=== PATIENT | male | born 1950 | race African-American/Black ===

== ENCOUNTER 2021-07-18 15:43 | Inpatient (IN) | payer MEDICARE ==
[~2021-07-18] VITALS: Ht 172.7 cm; Wt 161.2 kg
[2021-07-18] MEDS ORDERED: VANCOMYCIN 1 G PREMIX 200 ML IV ONE (17:15)
[2021-07-18] MEDS ORDERED: LEVOFLOXACIN 750MG PREMIX 150 ML IV ONE (17:15)
[2021-07-18] MEDS ORDERED: FUROSEMIDE 40MG/4ML VIAL IVP ONE (17:15)
[2021-07-18 18:11] LABS: HEMATOCRIT. 44.7 % (42.0-52.0); HEMOGLOBIN. 13.6 g/dL (14.0-18.0); MEAN CORPUSCULAR HEMOGLOBIN 24.5 pg (28.0-32.0); MEAN CORPUSCULAR VOLUME 80.7 fL (80.0-94.0); MEAN PLATELET VOLUME 8.1 fl (7.4-10.4); PLATELET 272 x1000/uL (130-400); RED BLOOD CELL COUNT 5.55 mill/uL (4.7-6.1); RED CELL DISTRIBUTION WIDTH 18.4 % (11.6-14.6)
[2021-07-18 19:03] LABS: CHLORIDE 100 mEq/L (98-107)
[2021-07-18] MEDS ORDERED: NITROGLYCERIN 0.4MG TABLET SL SL PRN (20:45)
[2021-07-18] MEDS ORDERED: DOCUSATE SODIUM 100MG CAPSULE PO PRN (20:45)
[2021-07-18] MEDS ORDERED: KETOROLAC 30MG/ML VIAL IV PRN (20:45)
[2021-07-18] MEDS ORDERED: PIPERACILLIN/TAZ 3.375G PREMIX 50 ML IV NR (20:45)
[2021-07-18] MEDS ORDERED: IPRATROPIUM/ALBUTEROL 0.5-3(2.5)MG/3ML NEB NEB PRN (20:45)
[2021-07-18] MEDS ORDERED: GUAIFENESIN 200MG/10ML SUGAR FREE UDC PO PRN (20:45)
[2021-07-18] MEDS ORDERED: ONDANSETRON HCL 4MG/2ML INJ IV PRN (20:45)
[2021-07-18] MEDS ORDERED: NA PHOS,M-B/NA PHOS,DI-BA ENEMA 118ML PR PRN (20:45)
[2021-07-18] MEDS ORDERED: TRAMADOL 50MG TABLET PO PRN (20:45)
[2021-07-18] MEDS: ENOXAPARIN 40MG/0.4ML SYR SUBCUT SCH (21:00)
[2021-07-18] MEDS ORDERED: NALOXONE HCL 0.4MG/ML VIAL IV PRN (21:00)
[2021-07-18] MEDS ORDERED: ZOLPIDEM TARTRATE 5MG TABLET PO PRN (21:00)
[2021-07-18] MEDS: ASCORBIC ACID 500 MG TABLET PO SCH (21:00)
[2021-07-18] MEDS: FAMOTIDINE 20MG TABLET PO SCH (21:00)
[2021-07-18 21:08] LABS: PLATELET ESTIMATE NORMAL
[2021-07-18 21:27] LABS: ETHANOL BLOOD < 10 mg/dL
[2021-07-18 21:29] LABS: TOTAL IRON BINDING CAPACITY 378 ug/dL (250-450)
[2021-07-18] MEDS ORDERED: VANCOMYCIN 1 G PREMIX 200 ML IV SCH (22:00)
[2021-07-19] VITALS (34 sets, daily range): BP systolic 109–142; BP diastolic 42–96
[2021-07-19 04:48] LABS: HEMATOCRIT. 42.6 % (42.0-52.0); MEAN CORPUSCULAR HEMOGLOBIN 24.8 pg (28.0-32.0); MEAN CORPUSCULAR VOLUME 81.1 fL (80.0-94.0); MEAN PLATELET VOLUME 7.5 fl (7.4-10.4); PLATELET 280 x1000/uL (130-400); RED BLOOD CELL COUNT 5.24 mill/uL (4.7-6.1)
[2021-07-19 04:58] LABS: CHLORIDE 99 mEq/L (98-107)
[2021-07-19 05:05] LABS: PHOSPHORUS 5.5 mg/dL (2.5-4.9)
[2021-07-19] MEDS ORDERED: PIPERACILLIN/TAZOBACTAM 3.375G in DEXT 5% WATER 50ML IV SCH (06:00)
[2021-07-19 07:26] LABS: PLATELET ESTIMATE NORMAL
[2021-07-19 07:53] LABS: HEMATOCRIT. 42.1 % (42.0-52.0); HEMOGLOBIN. 12.7 g/dL (14.0-18.0); MEAN CORPUSCULAR HEMOGLOBIN 24.7 pg (28.0-32.0); MEAN CORPUSCULAR VOLUME 81.7 fL (80.0-94.0); MEAN PLATELET VOLUME 7.4 fl (7.4-10.4); PLATELET 278 x1000/uL (130-400); RED BLOOD CELL COUNT 5.15 mill/uL (4.7-6.1); RED CELL DISTRIBUTION WIDTH 17.8 % (11.6-14.6)
[2021-07-19 08:00] LABS: CHLORIDE 98 mEq/L (98-107)
[2021-07-19 08:14] LABS: BG BASE EXCESS -3.5 mmol/L (-2.0-2.0); BG CARBOXYHEMOGLOBIN 0.9 % (0.5-1.5); BG DEOXYHEMOGLOBIN 5.9 % (0.0-5.0); BG HCO3 ACT 20.7 mmol/L (22.0-26.0); BG METHEMOGLOBIN 0.3 % (0.0-1.5); BG OXYHEMOGLOBIN 92.9 % (94.0-97.0); BG PCO2 33.9 mmHg (35.0-45.0); BG PH 7.404 (7.350-7.450); BG PO2 75.8 mmHg (75.0-100.0); BG SAMPLE SITE RIGHT RADIAL; BG TOTAL HEMOGLOBIN 9.6 g/dL (12.0-18.0); BG VENT MODE ROOM AIR
[2021-07-19] MEDS ORDERED: VECURONIUM BROMIDE 10 MG/VIAL IV ONE ×2 (08:46→11:15)
[2021-07-19] MEDS ORDERED: ETOMIDATE 2MG/ML 10ML VIAL IV ONE ×2 (08:46→11:15)
[2021-07-19] MEDS: ASPIRIN 325MG EC TABLET PO SCH (09:00)
[2021-07-19] MEDS: ZINC SULFATE 220 MG ( 50 ) CAPSULE PO SCH (09:00)
[2021-07-19] MEDS: ASCORBIC ACID 500 MG TABLET PO SCH ×2 (09:00→21:02)
[2021-07-19] MEDS: FAMOTIDINE 20MG TABLET PO SCH ×2 (09:00→21:02)
[2021-07-19 09:43] LABS: PLATELET ESTIMATE NORMAL
[2021-07-19] MEDS: ENOXAPARIN 40MG/0.4ML SYR SUBCUT SCH ×2 (09:47→21:03)
[2021-07-19] MEDS ORDERED: NOREPINEPHRINE 8 MG in DEXT 5% WATER 242 ML IV STA (11:12)
[2021-07-19] MEDS ORDERED: FENTANYL CITRATE/PF 2,500 MCG in SODIUM CHLORIDE 0.9% 200 ML IV PRN ×3 (11:15→12:52)
[2021-07-19] MEDS ORDERED: MIDAZOLAM HCL 50 MG in DEXTROSE 5% WATER 40 ML IV ONE (11:15)
[2021-07-19] MEDS ORDERED: PROPOFOL 10MG/ML 100ML 100 ML IV PRN (11:15)
[2021-07-19] MEDS ORDERED: NOREPINEPHRINE 8MG/250ML PMX 250 ML IV SCH (11:15)
[2021-07-19] MEDS ORDERED: MIDAZOLAM HCL 100 MG in DEXT 5% WATER 80 ML IV ONE (11:15)
[2021-07-19 11:40] LABS: BG BASE EXCESS 8.1 mmol/L (-2.0-2.0); BG CARBOXYHEMOGLOBIN 1.9 % (0.5-1.5); BG DEOXYHEMOGLOBIN 0.4 % (0.0-5.0); BG HCO3 ACT 41.5 mmol/L (22.0-26.0); BG METHEMOGLOBIN 0.4 % (0.0-1.5); BG OXYGEN SATURATION 99.6 % (92.0-98.5); BG OXYHEMOGLOBIN 97.3 % (94.0-97.0); BG PH 7.153 (7.350-7.450); BG PO2 217.2 mmHg (75.0-100.0); BG SAMPLE SITE LEFT RADIAL; BG TOTAL HEMOGLOBIN 13.5 g/dL (12.0-18.0); BG TOTAL RESPIRATORY RATE 16 b/min; BG VENT MODE VENT - AC
[2021-07-19] MEDS ORDERED: LIDOCAINE HCL 1% 20ML VIAL (Pyxis) INJ ONE (11:42)
[2021-07-19] MEDS ORDERED: MIDAZOLAM HCL 100 MG in SODIUM CHLORIDE 0.9% 80 ML IV PRN (11:45)
[2021-07-19] MEDS: FENTANYL CITRATE/PF 2,500 MCG in SODIUM CHLORIDE 0.9% 200 ML IV PRN (13:00)
[2021-07-19] MEDS: VANCOMYCIN 1250MG in DEXTROSE 5% WATER 250ML IV SCH (13:27)
[2021-07-19 14:30] LABS: FOLIC ACID (FOLATE) SERUM 6.4 ng/mL (>5.38)
[2021-07-19 14:30] LABS: BG BASE EXCESS 4.9 mmol/L (-2.0-2.0); BG CARBOXYHEMOGLOBIN 1.3 % (0.5-1.5); BG FRACTION INSPIRED OXYGEN 100; BG HCO3 ACT 33.4 mmol/L (22.0-26.0); BG METHEMOGLOBIN 0.3 % (0.0-1.5); BG OXYGEN SATURATION 92.9 % (92.0-98.5); BG OXYHEMOGLOBIN 91.4 % (94.0-97.0); BG PCO2 70.1 mmHg (35.0-45.0); BG PH 7.296 (7.350-7.450); BG PO2 71.1 mmHg (75.0-100.0); BG SAMPLE SITE LEFT RADIAL; BG TOTAL HEMOGLOBIN 12.6 g/dL (12.0-18.0); BG VENT MODE VENT - AC
[2021-07-19] MEDS ORDERED: NOREPINEPHRINE 8 MG in DEXTROSE 5% WATER 250 ML IV PRN (15:30)
[2021-07-19] MEDS: PIPERACILLIN/TAZOBACTAM 3.375G in DEXT 5% WATER 50ML IV SCH ×2 (16:07→21:03)
[2021-07-19] MEDS ORDERED: IPRATROPIUM/ALBUTEROL 0.5-3(2.5)MG/3ML NEB HHN PRN (19:00)
[2021-07-19] MEDS: IPRATROPIUM/ALBUTEROL 0.5-3(2.5)MG/3ML NEB HHN SCH ×2 (19:45→23:56)
[2021-07-19] MEDS: LACTULOSE 20G/30ML UDC PO SCH (21:02)
[2021-07-19] MEDS: MIDAZOLAM HCL 100 MG in SODIUM CHLORIDE 0.9% 80 ML IV PRN (21:02)
[2021-07-20] VITALS (88 sets, daily range): BP systolic 87–133; BP diastolic 38–70
[2021-07-20] MEDS: FENTANYL CITRATE/PF 2,500 MCG in SODIUM CHLORIDE 0.9% 200 ML IV PRN (03:10)
[2021-07-20] MEDS: IPRATROPIUM/ALBUTEROL 0.5-3(2.5)MG/3ML NEB HHN SCH ×5 (03:57→20:48)
[2021-07-20 06:08] LABS: CHLORIDE 104 mEq/L (98-107)
[2021-07-20] MEDS: PIPERACILLIN/TAZOBACTAM 3.375G in DEXT 5% WATER 50ML IV SCH ×3 (06:27→21:25)
[2021-07-20] MEDS: LACTULOSE 20G/30ML UDC PO SCH ×3 (06:27→21:25)
[2021-07-20] MEDS: VANCOMYCIN 1250MG in DEXTROSE 5% WATER 250ML IV SCH (07:35)
[2021-07-20] MEDS: MIDAZOLAM HCL 100 MG in SODIUM CHLORIDE 0.9% 80 ML IV PRN (07:36)
[2021-07-20] MEDS ORDERED: FUROSEMIDE 40MG/4ML VIAL IVP SCH (07:45)
[2021-07-20 09:03] LABS: BG BASE EXCESS 14.2 mmol/L (-2.0-2.0); BG CARBOXYHEMOGLOBIN 0.3 % (0.5-1.5); BG DEOXYHEMOGLOBIN 0.1 % (0.0-5.0); BG FRACTION INSPIRED OXYGEN 100; BG HCO3 ACT 37.7 mmol/L (22.0-26.0); BG METHEMOGLOBIN 0.4 % (0.0-1.5); BG OXYGEN SATURATION 99.9 % (92.0-98.5); BG OXYHEMOGLOBIN 99.2 % (94.0-97.0); BG PCO2 42.6 mmHg (35.0-45.0); BG PH 7.565 (7.350-7.450); BG PO2 393.6 mmHg (75.0-100.0); BG SAMPLE SITE LEFT RADIAL; BG TOTAL HEMOGLOBIN 11.5 g/dL (12.0-18.0); BG TOTAL RESPIRATORY RATE 20 b/min; BG VENT MODE VENT - AC
[2021-07-20] MEDS: ZINC SULFATE 220 MG ( 50 ) CAPSULE PO SCH (09:46)
[2021-07-20] MEDS: ASCORBIC ACID 500 MG TABLET PO SCH ×2 (09:47→21:25)
[2021-07-20] MEDS: FAMOTIDINE 20MG TABLET PO SCH ×2 (09:47→21:25)
[2021-07-20] MEDS: ENOXAPARIN 40MG/0.4ML SYR SUBCUT SCH (09:47)
[2021-07-20] MEDS: ASPIRIN 325MG EC TABLET PO SCH (09:48)
[2021-07-20] MEDS ORDERED: LIDOCAINE HCL 1% 20ML VIAL (Pyxis) INJ INFIL SCH (11:25)
[2021-07-20] MEDS ORDERED: LIDOCAINE HCL 2% JELLY 5ML TOP SCH (11:30)
[2021-07-20] MEDS ORDERED: RACEPINEPHRINE 2.25% 0.5ML NEB VIAL HHN PRN (12:30)
[2021-07-20] MEDS ORDERED: RACEPINEPHRINE 2.25% 0.5ML NEB VIAL HHN SCH (12:30)
[2021-07-20] MEDS: PHENYLEPHRINE 100 MG in DEXT 5% WATER 240 ML IV PRN (13:07)
[2021-07-20] MEDS: SODIUM HYPOCHLORITE 0.125% 473ML SOLUTION TOP SCH (14:22)
[2021-07-21] VITALS (71 sets, daily range): BP systolic 71–149; BP diastolic 25–78
[2021-07-21] MEDS: IPRATROPIUM/ALBUTEROL 0.5-3(2.5)MG/3ML NEB HHN SCH ×6 (00:30→20:20)
[2021-07-21] MEDS: FENTANYL CITRATE/PF 2,500 MCG in SODIUM CHLORIDE 0.9% 200 ML IV PRN ×2 (01:07→18:44)
[2021-07-21] MEDS: VANCOMYCIN 1250MG in DEXTROSE 5% WATER 250ML IV SCH ×2 (02:19→19:13)
[2021-07-21] MEDS: MIDAZOLAM HCL 100 MG in SODIUM CHLORIDE 0.9% 80 ML IV PRN (05:15)
[2021-07-21] MEDS: PIPERACILLIN/TAZOBACTAM 3.375G in DEXT 5% WATER 50ML IV SCH ×3 (05:40→23:03)
[2021-07-21] MEDS: LACTULOSE 20G/30ML UDC PO SCH ×3 (05:40→23:03)
[2021-07-21 08:09] LABS: BASOPHILS % 0.4 % (0.0-2.0); EOSINOPHILS % 2.3 % (0.0-5.0); LYMPHOCYTES % 12.9 % (20.0-50.0); MEAN CORPUSCULAR VOLUME 78.9 fL (80.0-94.0); MEAN PLATELET VOLUME 8.1 fl (7.4-10.4); MONOCYTES % 7.4 % (2.0-8.0); PLATELET 229 x1000/uL (130-400); RED CELL DISTRIBUTION WIDTH 17.7 % (11.6-14.6)
[2021-07-21 08:14] LABS: HEMOGLOBIN. 10.3 g/dL (14.0-18.0)
[2021-07-21 08:15] LABS: HEMATOCRIT. 32.4 % (42.0-52.0)
[2021-07-21 08:43] LABS: CHLORIDE 103 mEq/L (98-107)
[2021-07-21 09:14] LABS: BG BASE EXCESS 13.9 mmol/L (-2.0-2.0); BG CARBOXYHEMOGLOBIN 0.5 % (0.5-1.5); BG DEOXYHEMOGLOBIN 0.9 % (0.0-5.0); BG FRACTION INSPIRED OXYGEN 50; BG HCO3 ACT 39.2 mmol/L (22.0-26.0); BG METHEMOGLOBIN 0.3 % (0.0-1.5); BG OXYGEN SATURATION 99.1 % (92.0-98.5); BG OXYHEMOGLOBIN 98.3 % (94.0-97.0); BG PCO2 52.7 mmHg (35.0-45.0); BG PH 7.489 (7.350-7.450); BG PO2 145.3 mmHg (75.0-100.0); BG SAMPLE SITE RIGHT RADIAL; BG TOTAL HEMOGLOBIN 11.2 g/dL (12.0-18.0); BG VENT MODE VENT - AC
[2021-07-21] MEDS: FAMOTIDINE 20MG TABLET PO SCH ×2 (10:21→23:04)
[2021-07-21] MEDS: ZINC SULFATE 220 MG ( 50 ) CAPSULE PO SCH (10:21)
[2021-07-21] MEDS: ASCORBIC ACID 500 MG TABLET PO SCH ×2 (10:21→23:03)
[2021-07-21] MEDS: SODIUM HYPOCHLORITE 0.125% 473ML SOLUTION TOP SCH (10:22)
[2021-07-21] MEDS ORDERED: PROPOFOL 10MG/ML 100ML 100 ML IV PRN (10:30)
[2021-07-21 14:09] LABS: A/G RATIO 0.4 (0.7-1.7); ALBUMIN 2.2 g/dL (2.9-4.4); ALPHA-1-GLOBULIN 0.4 g/dL (0.0-0.4); ALPHA-2-GLOBULIN 0.9 g/dL (0.4-1.0); BETA GLOBULIN 1.1 g/dL (0.7-1.3); GAMMA GLOBULINS 3.1 g/dL (0.4-1.8); GLOBULIN TOTAL 5.5 g/dL (2.2-3.9); M-SPIKE 1.2 g/dL (Not Observed); TOTAL PROTEIN SERUM 7.7 g/dL (6.0-8.5)
[2021-07-22] VITALS (93 sets, daily range): BP systolic 70–128; BP diastolic 40–73
[2021-07-22] MEDS: IPRATROPIUM/ALBUTEROL 0.5-3(2.5)MG/3ML NEB HHN SCH ×6 (00:21→19:57)
[2021-07-22] MEDS: LACTULOSE 20G/30ML UDC PO SCH ×3 (06:16→22:03)
[2021-07-22] MEDS: PIPERACILLIN/TAZOBACTAM 3.375G in DEXT 5% WATER 50ML IV SCH (06:16)
[2021-07-22] MEDS: MIDAZOLAM HCL 100 MG in SODIUM CHLORIDE 0.9% 80 ML IV PRN ×2 (06:18→18:10)
[2021-07-22 06:45] LABS: BASOPHILS % 0.3 % (0.0-2.0); EOSINOPHILS % 2.6 % (0.0-5.0); HEMATOCRIT. 33.5 % (42.0-52.0); HEMOGLOBIN. 10.6 g/dL (14.0-18.0); LYMPHOCYTES % 11.7 % (20.0-50.0); MEAN CORPUSCULAR HEMOGLOBIN 24.6 pg (28.0-32.0); MEAN CORPUSCULAR VOLUME 77.8 fL (80.0-94.0); MEAN PLATELET VOLUME 7.6 fl (7.4-10.4); MONOCYTES % 9.4 % (2.0-8.0); PLATELET 202 x1000/uL (130-400); RED CELL DISTRIBUTION WIDTH 17.6 % (11.6-14.6)
[2021-07-22 07:10] LABS: CHLORIDE 103 mEq/L (98-107)
[2021-07-22] MEDS: ASCORBIC ACID 500 MG TABLET PO SCH ×2 (08:04→21:00)
[2021-07-22] MEDS: FAMOTIDINE 20MG TABLET PO SCH ×2 (08:04→21:00)
[2021-07-22] MEDS: ZINC SULFATE 220 MG ( 50 ) CAPSULE PO SCH (08:04)
[2021-07-22] MEDS: SODIUM HYPOCHLORITE 0.125% 473ML SOLUTION TOP SCH (08:05)
[2021-07-22 09:08] LABS: BG BASE EXCESS 10.2 mmol/L (-2.0-2.0); BG CARBOXYHEMOGLOBIN 0.7 % (0.5-1.5); BG DEOXYHEMOGLOBIN 0.8 % (0.0-5.0); BG FRACTION INSPIRED OXYGEN 40; BG HCO3 ACT 34.3 mmol/L (22.0-26.0); BG METHEMOGLOBIN 0.3 % (0.0-1.5); BG OXYGEN SATURATION 99.2 % (92.0-98.5); BG OXYHEMOGLOBIN 98.2 % (94.0-97.0); BG PCO2 44.1 mmHg (35.0-45.0); BG PH 7.509 (7.350-7.450); BG PO2 155.4 mmHg (75.0-100.0); BG SAMPLE SITE RIGHT RADIAL; BG TOTAL HEMOGLOBIN 11.1 g/dL (12.0-18.0); BG TOTAL RESPIRATORY RATE 20 b/min; BG VENT MODE VENT - AC
[2021-07-22] MEDS: VANCOMYCIN 1250MG in DEXTROSE 5% WATER 250ML IV SCH (12:21)
[2021-07-22 14:33] LABS: BG BASE EXCESS 8.8 mmol/L (-2.0-2.0); BG CARBOXYHEMOGLOBIN 0.6 % (0.5-1.5); BG FRACTION INSPIRED OXYGEN 40; BG HCO3 ACT 37.4 mmol/L (22.0-26.0); BG METHEMOGLOBIN 0.3 % (0.0-1.5); BG OXYHEMOGLOBIN 94.1 % (94.0-97.0); BG PCO2 75.2 mmHg (35.0-45.0); BG PH 7.315 (7.350-7.450); BG PO2 89.8 mmHg (75.0-100.0); BG SAMPLE SITE RIGHT RADIAL; BG TOTAL HEMOGLOBIN 11.7 g/dL (12.0-18.0); BG TOTAL RESPIRATORY RATE 12 b/min; BG VENT MODE VENT - SIMV
[2021-07-22] MEDS ORDERED: CLINDAMYCIN 600 MG in DEXTROSE 5% WATER 50 ML IV SCH (14:45)
[2021-07-22] MEDS: CEFEPIME 1,000 MG in DEXTROSE 5% WATER 50 ML IV SCH (17:22)
[2021-07-22] MEDS: CLINDAMYCIN 600MG PREMIX 50 ML IV SCH (17:39)
[2021-07-23] VITALS (83 sets, daily range): BP systolic 92–143; BP diastolic 18–80
[2021-07-23] MEDS: FENTANYL CITRATE/PF 2,500 MCG in SODIUM CHLORIDE 0.9% 200 ML IV PRN (00:31)
[2021-07-23] MEDS: PHENYLEPHRINE 100 MG in DEXT 5% WATER 240 ML IV PRN ×2 (00:34→22:18)
[2021-07-23] MEDS: IPRATROPIUM/ALBUTEROL 0.5-3(2.5)MG/3ML NEB HHN SCH ×5 (01:58→20:13)
[2021-07-23] MEDS: CLINDAMYCIN 600MG PREMIX 50 ML IV SCH ×3 (02:00→18:23)
[2021-07-23] MEDS: CEFEPIME 1,000 MG in DEXTROSE 5% WATER 50 ML IV SCH ×2 (04:00→15:35)
[2021-07-23] MEDS: MIDAZOLAM HCL 100 MG in SODIUM CHLORIDE 0.9% 80 ML IV PRN (05:45)
[2021-07-23] MEDS: LACTULOSE 20G/30ML UDC PO SCH ×3 (06:00→21:53)
[2021-07-23 06:19] LABS: BASOPHILS % 0.5 % (0.0-2.0); EOSINOPHILS % 3.1 % (0.0-5.0); HEMATOCRIT. 31.4 % (42.0-52.0); LYMPHOCYTES % 15.1 % (20.0-50.0); MEAN CORPUSCULAR HEMOGLOBIN 24.4 pg (28.0-32.0); MEAN CORPUSCULAR VOLUME 76.4 fL (80.0-94.0); MEAN PLATELET VOLUME 7.7 fl (7.4-10.4); MONOCYTES % 10.9 % (2.0-8.0); NEUTROPHILS % 70.4 % (40.0-76.0); PLATELET 194 x1000/uL (130-400); RED CELL DISTRIBUTION WIDTH 17.5 % (11.6-14.6)
[2021-07-23 06:31] LABS: CHLORIDE 104 mEq/L (98-107)
[2021-07-23 06:41] LABS: CREATINE KINASE 717 IU/L (39-308)
[2021-07-23] MEDS: VANCOMYCIN 1250MG in DEXTROSE 5% WATER 250ML IV SCH (07:00)
[2021-07-23 10:15] LABS: BG BASE EXCESS 8.4 mmol/L (-2.0-2.0); BG CARBOXYHEMOGLOBIN 0.6 % (0.5-1.5); BG DEOXYHEMOGLOBIN 1.6 % (0.0-5.0); BG FRACTION INSPIRED OXYGEN 35; BG HCO3 ACT 32.2 mmol/L (22.0-26.0); BG METHEMOGLOBIN 0.1 % (0.0-1.5); BG OXYGEN SATURATION 98.4 % (92.0-98.5); BG OXYHEMOGLOBIN 97.7 % (94.0-97.0); BG PCO2 41.6 mmHg (35.0-45.0); BG PH 7.507 (7.350-7.450); BG PO2 112.4 mmHg (75.0-100.0); BG SAMPLE SITE RIGHT RADIAL; BG TOTAL HEMOGLOBIN 11.4 g/dL (12.0-18.0); BG VENT MODE VENT - AC
[2021-07-23] MEDS: FAMOTIDINE 20MG TABLET PO SCH ×2 (11:06→20:33)
[2021-07-23] MEDS: ZINC SULFATE 220 MG ( 50 ) CAPSULE PO SCH (11:06)
[2021-07-23] MEDS: ASCORBIC ACID 500 MG TABLET PO SCH ×2 (11:07→20:33)
[2021-07-23] MEDS: SODIUM HYPOCHLORITE 0.125% 473ML SOLUTION TOP SCH (11:07)
[2021-07-24] VITALS (95 sets, daily range): BP systolic 69–183; BP diastolic 25–87
[2021-07-24] MEDS: IPRATROPIUM/ALBUTEROL 0.5-3(2.5)MG/3ML NEB HHN SCH ×6 (00:11→20:32)
[2021-07-24] MEDS: CLINDAMYCIN 600MG PREMIX 50 ML IV SCH ×3 (01:33→17:54)
[2021-07-24] MEDS: CEFEPIME 1,000 MG in DEXTROSE 5% WATER 50 ML IV SCH (04:03)
[2021-07-24] MEDS: LACTULOSE 20G/30ML UDC PO SCH ×3 (05:03→21:00)
[2021-07-24 05:35] LABS: BASOPHILS % 0.4 % (0.0-2.0); EOSINOPHILS % 2.7 % (0.0-5.0); HEMATOCRIT. 33.6 % (42.0-52.0); HEMOGLOBIN. 10.5 g/dL (14.0-18.0); LYMPHOCYTES % 13.1 % (20.0-50.0); MEAN CORPUSCULAR VOLUME 77.3 fL (80.0-94.0); MONOCYTES % 8.8 % (2.0-8.0); PLATELET 196 x1000/uL (130-400); RED BLOOD CELL COUNT 4.35 mill/uL (4.7-6.1); RED CELL DISTRIBUTION WIDTH 17.7 % (11.6-14.6)
[2021-07-24 05:38] LABS: CHLORIDE 106 mEq/L (98-107)
[2021-07-24] MEDS: MIDAZOLAM HCL 100 MG in SODIUM CHLORIDE 0.9% 80 ML IV PRN ×2 (05:42→18:35)
[2021-07-24] MEDS: FENTANYL CITRATE/PF 2,500 MCG in SODIUM CHLORIDE 0.9% 200 ML IV PRN (05:59)
[2021-07-24] MEDS: FAMOTIDINE 20MG TABLET PO SCH ×2 (09:28→21:00)
[2021-07-24] MEDS: ASCORBIC ACID 500 MG TABLET PO SCH ×2 (09:28→21:00)
[2021-07-24] MEDS: ZINC SULFATE 220 MG ( 50 ) CAPSULE PO SCH (09:28)
[2021-07-24] MEDS: SODIUM HYPOCHLORITE 0.125% 473ML SOLUTION TOP SCH (09:29)
[2021-07-24] MEDS: CEFTRIAXONE 2 G in DEXTROSE 5% WATER 50 ML IV SCH (15:11)
[2021-07-25] VITALS (96 sets, daily range): BP systolic 80–146; BP diastolic 22–88
[2021-07-25] MEDS: IPRATROPIUM/ALBUTEROL 0.5-3(2.5)MG/3ML NEB HHN SCH ×6 (00:37→20:57)
[2021-07-25] MEDS: CLINDAMYCIN 600MG PREMIX 50 ML IV SCH ×3 (02:55→17:05)
[2021-07-25 05:46] LABS: CHLORIDE 107 mEq/L (98-107)
[2021-07-25 06:00] LABS: CREATINE KINASE 347 IU/L (39-308)
[2021-07-25] MEDS: LACTULOSE 20G/30ML UDC PO SCH ×3 (07:07→22:15)
[2021-07-25] MEDS: SODIUM HYPOCHLORITE 0.125% 473ML SOLUTION TOP SCH (08:14)
[2021-07-25] MEDS: ZINC SULFATE 220 MG ( 50 ) CAPSULE PO SCH (08:14)
[2021-07-25] MEDS: ASCORBIC ACID 500 MG TABLET PO SCH ×2 (08:15→21:16)
[2021-07-25] MEDS: FAMOTIDINE 20MG TABLET PO SCH ×2 (08:15→21:16)
[2021-07-25 08:49] LABS: BG BASE EXCESS 3.9 mmol/L (-2.0-2.0); BG CARBOXYHEMOGLOBIN 0.4 % (0.5-1.5); BG DEOXYHEMOGLOBIN 0.9 % (0.0-5.0); BG FRACTION INSPIRED OXYGEN 35; BG METHEMOGLOBIN 0.3 % (0.0-1.5); BG OXYGEN SATURATION 99.1 % (92.0-98.5); BG OXYHEMOGLOBIN 98.4 % (94.0-97.0); BG PCO2 35.1 mmHg (35.0-45.0); BG PH 7.504 (7.350-7.450); BG PO2 150.6 mmHg (75.0-100.0); BG TOTAL HEMOGLOBIN 10.7 g/dL (12.0-18.0); BG VENT MODE VENT - AC
[2021-07-25] MEDS: FENTANYL CITRATE/PF 2,500 MCG in SODIUM CHLORIDE 0.9% 200 ML IV PRN (09:52)
[2021-07-25] MEDS: ACETAMINOPHEN 325MG TABLET PO PRN (12:58)
[2021-07-25] MEDS: MIDAZOLAM HCL 100 MG in SODIUM CHLORIDE 0.9% 80 ML IV PRN (14:47)
[2021-07-25] MEDS: CEFTRIAXONE 2 G in DEXTROSE 5% WATER 50 ML IV SCH (16:01)
[2021-07-25] MEDS ORDERED: FUROSEMIDE 40MG/4ML VIAL IVP NR (19:00)
[2021-07-25] MEDS: ENOXAPARIN 40MG/0.4ML SYR SUBCUT SCH (21:16)
[2021-07-26] VITALS (60 sets, daily range): BP systolic 93–138; BP diastolic 45–116
[2021-07-26] MEDS: IPRATROPIUM/ALBUTEROL 0.5-3(2.5)MG/3ML NEB HHN SCH ×6 (00:28→20:31)
[2021-07-26] MEDS: CLINDAMYCIN 600MG PREMIX 50 ML IV SCH ×3 (02:16→17:41)
[2021-07-26] MEDS: LACTULOSE 20G/30ML UDC PO SCH ×3 (06:07→21:49)
[2021-07-26 06:09] LABS: BASOPHILS % 0.5 % (0.0-2.0); EOSINOPHILS % 3.6 % (0.0-5.0); HEMATOCRIT. 31.3 % (42.0-52.0); HEMOGLOBIN. 9.7 g/dL (14.0-18.0); LYMPHOCYTES % 7.2 % (20.0-50.0); MEAN CORPUSCULAR HEMOGLOBIN 24.4 pg (28.0-32.0); MEAN CORPUSCULAR VOLUME 78.3 fL (80.0-94.0); MEAN PLATELET VOLUME 8.2 fl (7.4-10.4); NEUTROPHILS % 80.7 % (40.0-76.0); PLATELET 237 x1000/uL (130-400); RED CELL DISTRIBUTION WIDTH 17.7 % (11.6-14.6)
[2021-07-26 06:18] LABS: CHLORIDE 106 mEq/L (98-107)
[2021-07-26] MEDS: ASCORBIC ACID 500 MG TABLET PO SCH ×2 (08:38→20:51)
[2021-07-26] MEDS: ZINC SULFATE 220 MG ( 50 ) CAPSULE PO SCH (08:38)
[2021-07-26] MEDS: ENOXAPARIN 40MG/0.4ML SYR SUBCUT SCH ×2 (08:38→20:51)
[2021-07-26] MEDS: FAMOTIDINE 20MG TABLET PO SCH ×2 (08:39→20:51)
[2021-07-26] MEDS: SODIUM HYPOCHLORITE 0.125% 473ML SOLUTION TOP SCH (08:39)
[2021-07-26 08:41] LABS: BG BASE EXCESS 5.3 mmol/L (-2.0-2.0); BG CARBOXYHEMOGLOBIN 0.5 % (0.5-1.5); BG DEOXYHEMOGLOBIN 1.8 % (0.0-5.0); BG FRACTION INSPIRED OXYGEN 35; BG HCO3 ACT 31.2 mmol/L (22.0-26.0); BG METHEMOGLOBIN 0.2 % (0.0-1.5); BG OXYGEN SATURATION 98.2 % (92.0-98.5); BG OXYHEMOGLOBIN 97.5 % (94.0-97.0); BG PCO2 52.2 mmHg (35.0-45.0); BG PH 7.394 (7.350-7.450); BG PO2 120.1 mmHg (75.0-100.0); BG SAMPLE SITE RIGHT RADIAL; BG TOTAL RESPIRATORY RATE 23 b/min; BG VENT MODE VENT - AC
[2021-07-26] MEDS ORDERED: FUROSEMIDE 40MG/4ML VIAL IVP NR (11:30)
[2021-07-26] MEDS: CEFTRIAXONE 2 G in DEXTROSE 5% WATER 50 ML IV SCH (15:53)
[2021-07-26] MEDS: MIDAZOLAM HCL 100 MG in SODIUM CHLORIDE 0.9% 80 ML IV PRN (17:42)
[2021-07-27] VITALS (80 sets, daily range): BP systolic 49–141; BP diastolic 17–97
[2021-07-27] MEDS: IPRATROPIUM/ALBUTEROL 0.5-3(2.5)MG/3ML NEB HHN SCH ×6 (00:31→20:15)
[2021-07-27] MEDS: CLINDAMYCIN 600MG PREMIX 50 ML IV SCH ×3 (01:38→17:44)
[2021-07-27] MEDS: LACTULOSE 20G/30ML UDC PO SCH ×3 (05:48→21:55)
[2021-07-27 08:21] LABS: BG BASE EXCESS -0.1 mmol/L (-2.0-2.0); BG CARBOXYHEMOGLOBIN 0.4 % (0.5-1.5); BG DEOXYHEMOGLOBIN 1.9 % (0.0-5.0); BG FRACTION INSPIRED OXYGEN 35; BG HCO3 ACT 24.8 mmol/L (22.0-26.0); BG METHEMOGLOBIN 0.3 % (0.0-1.5); BG OXYGEN SATURATION 98.1 % (92.0-98.5); BG OXYHEMOGLOBIN 97.4 % (94.0-97.0); BG PCO2 41.8 mmHg (35.0-45.0); BG PH 7.392 (7.350-7.450); BG PO2 109.6 mmHg (75.0-100.0); BG SAMPLE SITE LEFT RADIAL; BG TOTAL HEMOGLOBIN 10.5 g/dL (12.0-18.0); BG VENT MODE VENT - AC
[2021-07-27] MEDS: ZINC SULFATE 220 MG ( 50 ) CAPSULE PO SCH (08:45)
[2021-07-27] MEDS: FAMOTIDINE 20MG TABLET PO SCH ×2 (08:45→21:53)
[2021-07-27] MEDS: SODIUM HYPOCHLORITE 0.125% 473ML SOLUTION TOP SCH (08:45)
[2021-07-27] MEDS: ASCORBIC ACID 500 MG TABLET PO SCH ×2 (08:45→21:53)
[2021-07-27] MEDS: ENOXAPARIN 40MG/0.4ML SYR SUBCUT SCH ×2 (08:46→21:54)
[2021-07-27] MEDS: CEFTRIAXONE 2 G in DEXTROSE 5% WATER 50 ML IV SCH (15:13)
[2021-07-27] MEDS: FENTANYL CITRATE/PF 2,500 MCG in SODIUM CHLORIDE 0.9% 200 ML IV PRN (17:48)
[2021-07-28] VITALS (87 sets, daily range): BP systolic 88–151; BP diastolic 40–97
[2021-07-28] MEDS: IPRATROPIUM/ALBUTEROL 0.5-3(2.5)MG/3ML NEB HHN SCH ×6 (00:08→20:45)
[2021-07-28 05:52] LABS: CHLORIDE 109 mEq/L (98-107)
[2021-07-28] MEDS: BLOOD SUGAR DIAGNOSTIC STRIP TEST SCH ×3 (05:58→18:45)
[2021-07-28] MEDS: LACTULOSE 20G/30ML UDC PO SCH ×3 (05:58→21:45)
[2021-07-28 05:59] LABS: HEMATOCRIT. 30.4 % (42.0-52.0); HEMOGLOBIN. 9.5 g/dL (14.0-18.0); MEAN CORPUSCULAR HEMOGLOBIN 24.7 pg (28.0-32.0); MEAN CORPUSCULAR VOLUME 79.4 fL (80.0-94.0); MEAN PLATELET VOLUME 8.3 fl (7.4-10.4); PLATELET 288 x1000/uL (130-400); RED BLOOD CELL COUNT 3.83 mill/uL (4.7-6.1); RED CELL DISTRIBUTION WIDTH 17.9 % (11.6-14.6)
[2021-07-28] MEDS: INSULIN LISPRO 100 UNITS/ML SUBCUT SCH ×3 (05:59→18:00)
[2021-07-28] MEDS ORDERED: DEXTROSE 50% WATER 50ML SYRINGE IV PRN (06:00)
[2021-07-28 08:16] LABS: BG BASE EXCESS 5.2 mmol/L (-2.0-2.0); BG CARBOXYHEMOGLOBIN 0.6 % (0.5-1.5); BG DEOXYHEMOGLOBIN 2.6 % (0.0-5.0); BG METHEMOGLOBIN 0.2 % (0.0-1.5); BG OXYGEN SATURATION 97.4 % (92.0-98.5); BG OXYHEMOGLOBIN 96.6 % (94.0-97.0); BG PCO2 67.4 mmHg (35.0-45.0); BG PH 7.308 (7.350-7.450); BG PO2 111.3 mmHg (75.0-100.0); BG SAMPLE SITE RIGHT RADIAL; BG TOTAL HEMOGLOBIN 10.7 g/dL (12.0-18.0); BG VENT MODE VENT - SIMV
[2021-07-28] MEDS: ENOXAPARIN 40MG/0.4ML SYR SUBCUT SCH ×2 (09:00→21:44)
[2021-07-28] MEDS: ZINC SULFATE 220 MG ( 50 ) CAPSULE PO SCH (09:03)
[2021-07-28] MEDS: FAMOTIDINE 20MG TABLET PO SCH ×2 (09:03→21:44)
[2021-07-28] MEDS: SODIUM HYPOCHLORITE 0.125% 473ML SOLUTION TOP SCH (09:03)
[2021-07-28] MEDS: ASCORBIC ACID 500 MG TABLET PO SCH ×2 (09:03→21:44)
[2021-07-28 09:52] LABS: PLATELET ESTIMATE NORMAL
[2021-07-28 11:28] LABS: BG BASE EXCESS 2.6 mmol/L (-2.0-2.0); BG CARBOXYHEMOGLOBIN 0.7 % (0.5-1.5); BG DEOXYHEMOGLOBIN 3.4 % (0.0-5.0); BG HCO3 ACT 28.9 mmol/L (22.0-26.0); BG METHEMOGLOBIN 0.3 % (0.0-1.5); BG OXYGEN SATURATION 96.6 % (92.0-98.5); BG OXYHEMOGLOBIN 95.6 % (94.0-97.0); BG PCO2 52.9 mmHg (35.0-45.0); BG PH 7.355 (7.350-7.450); BG PO2 90.9 mmHg (75.0-100.0); BG SAMPLE SITE RIGHT RADIAL; BG TOTAL HEMOGLOBIN 10.8 g/dL (12.0-18.0); BG VENT MODE VENT - SIMV
[2021-07-28] MEDS: FENTANYL CITRATE/PF 2,500 MCG in SODIUM CHLORIDE 0.9% 200 ML IV PRN (14:14)
[2021-07-28] MEDS ORDERED: NALOXONE HCL 0.4MG/ML VIAL IV PRN (15:45)
[2021-07-28] MEDS: CEFTRIAXONE 2 G in DEXTROSE 5% WATER 50 ML IV SCH (16:05)
[2021-07-28] MEDS: LORAZEPAM 2MG/ML CPJ IV PRN ×2 (16:41→21:00)
[2021-07-28] MEDS: ACETAMINOPHEN 325MG TABLET PO PRN (19:27)
[2021-07-29] VITALS (70 sets, daily range): BP systolic 112–143; BP diastolic 41–92
[2021-07-29] MEDS: BLOOD SUGAR DIAGNOSTIC STRIP TEST SCH ×5 (00:31→23:20)
[2021-07-29] MEDS: IPRATROPIUM/ALBUTEROL 0.5-3(2.5)MG/3ML NEB HHN SCH ×7 (00:48→23:55)
[2021-07-29] MEDS: INSULIN LISPRO 100 UNITS/ML SUBCUT SCH ×5 (06:00→23:28)
[2021-07-29] MEDS: LACTULOSE 20G/30ML UDC PO SCH ×3 (06:12→21:28)
[2021-07-29] MEDS: LORAZEPAM 2MG/ML CPJ IV PRN ×2 (06:36→21:31)
[2021-07-29 06:39] LABS: CHLORIDE 110 mEq/L (98-107)
[2021-07-29 06:45] LABS: HEMATOCRIT. 31.9 % (42.0-52.0); HEMOGLOBIN. 9.7 g/dL (14.0-18.0); MEAN CORPUSCULAR HEMOGLOBIN 23.9 pg (28.0-32.0); MEAN CORPUSCULAR VOLUME 78.8 fL (80.0-94.0); MEAN PLATELET VOLUME 8.3 fl (7.4-10.4); PLATELET 371 x1000/uL (130-400); RED BLOOD CELL COUNT 4.05 mill/uL (4.7-6.1); RED CELL DISTRIBUTION WIDTH 17.7 % (11.6-14.6)
[2021-07-29 08:27] LABS: PLATELET ESTIMATE NORMAL
[2021-07-29 08:28] LABS: BG BASE EXCESS 4.7 mmol/L (-2.0-2.0); BG CARBOXYHEMOGLOBIN 0.1 % (0.5-1.5); BG DEOXYHEMOGLOBIN 0.7 % (0.0-5.0); BG FRACTION INSPIRED OXYGEN 40; BG HCO3 ACT 29.7 mmol/L (22.0-26.0); BG METHEMOGLOBIN 0.4 % (0.0-1.5); BG OXYGEN SATURATION 99.3 % (92.0-98.5); BG OXYHEMOGLOBIN 98.8 % (94.0-97.0); BG PCO2 46.6 mmHg (35.0-45.0); BG PH 7.422 (7.350-7.450); BG PO2 174.4 mmHg (75.0-100.0); BG VENT MODE VENT - AC
[2021-07-29] MEDS: SODIUM HYPOCHLORITE 0.125% 473ML SOLUTION TOP SCH (10:13)
[2021-07-29] MEDS: ZINC SULFATE 220 MG ( 50 ) CAPSULE PO SCH (10:14)
[2021-07-29] MEDS: FAMOTIDINE 20MG TABLET PO SCH ×2 (10:14→20:29)
[2021-07-29] MEDS: ENOXAPARIN 40MG/0.4ML SYR SUBCUT SCH ×2 (10:14→20:29)
[2021-07-29] MEDS: ASCORBIC ACID 500 MG TABLET PO SCH ×2 (10:14→20:29)
[2021-07-29] MEDS: MORPHINE SULFATE 2 MG/ML CPJ (NOT FOR IM USE) IV PRN ×2 (10:15→16:46)
[2021-07-29 11:04] LABS: BG BASE EXCESS 4.7 mmol/L (-2.0-2.0); BG CARBOXYHEMOGLOBIN 0.3 % (0.5-1.5); BG FRACTION INSPIRED OXYGEN 30; BG METHEMOGLOBIN 0.2 % (0.0-1.5); BG OXYHEMOGLOBIN 96.5 % (94.0-97.0); BG PCO2 53.9 mmHg (35.0-45.0); BG PH 7.377 (7.350-7.450); BG SAMPLE SITE RIGHT RADIAL; BG TOTAL HEMOGLOBIN 11.2 g/dL (12.0-18.0); BG VENT MODE VENT - CPAP
[2021-07-29] MEDS ORDERED: FUROSEMIDE 40MG/4ML VIAL IVP NR (14:00)
[2021-07-29] MEDS: CEFTRIAXONE 2 G in DEXTROSE 5% WATER 50 ML IV SCH (16:46)
[2021-07-29] MEDS: ACETAMINOPHEN 325MG TABLET PO PRN (20:29)
[2021-07-29] MEDS: DILTIAZEM HCL 30MG TABLET PO SCH (23:28)
[2021-07-30] VITALS (78 sets, daily range): BP systolic 88–177; BP diastolic 37–119
[2021-07-30] MEDS: ACETAMINOPHEN 325MG TABLET PO PRN (03:17)
[2021-07-30] MEDS: IPRATROPIUM/ALBUTEROL 0.5-3(2.5)MG/3ML NEB HHN SCH ×5 (03:59→20:42)
[2021-07-30] MEDS: BLOOD SUGAR DIAGNOSTIC STRIP TEST SCH ×3 (05:37→18:08)
[2021-07-30] MEDS: INSULIN LISPRO 100 UNITS/ML SUBCUT SCH ×3 (05:37→18:00)
[2021-07-30 06:36] LABS: HEMATOCRIT. 34.1 % (42.0-52.0); HEMOGLOBIN. 10.7 g/dL (14.0-18.0); MEAN CORPUSCULAR HEMOGLOBIN 24.4 pg (28.0-32.0); MEAN CORPUSCULAR VOLUME 77.9 fL (80.0-94.0); PLATELET 411 x1000/uL (130-400); RED BLOOD CELL COUNT 4.37 mill/uL (4.7-6.1); RED CELL DISTRIBUTION WIDTH 17.9 % (11.6-14.6)
[2021-07-30] MEDS: LACTULOSE 20G/30ML UDC PO SCH ×3 (06:39→23:06)
[2021-07-30] MEDS: DILTIAZEM HCL 30MG TABLET PO SCH ×3 (06:39→18:00)
[2021-07-30 06:43] LABS: CHLORIDE 113 mEq/L (98-107)
[2021-07-30] MEDS: ZINC SULFATE 220 MG ( 50 ) CAPSULE PO SCH ×2 (09:00→09:21)
[2021-07-30] MEDS: ASCORBIC ACID 500 MG TABLET PO SCH ×3 (09:00→23:05)
[2021-07-30] MEDS: FAMOTIDINE 20MG TABLET PO SCH ×3 (09:00→23:07)
[2021-07-30] MEDS: ENOXAPARIN 40MG/0.4ML SYR SUBCUT SCH ×2 (09:21→23:05)
[2021-07-30] MEDS: SODIUM HYPOCHLORITE 0.125% 473ML SOLUTION TOP SCH (09:22)
[2021-07-30] MEDS ORDERED: METOCLOPRAMIDE 10MG/10 ML UDC PO PRN (09:45)
[2021-07-30 10:18] LABS: BG CARBOXYHEMOGLOBIN 0.4 % (0.5-1.5); BG DEOXYHEMOGLOBIN 2.9 % (0.0-5.0); BG FRACTION INSPIRED OXYGEN 30; BG HCO3 ACT 32.7 mmol/L (22.0-26.0); BG METHEMOGLOBIN 0.3 % (0.0-1.5); BG OXYGEN SATURATION 97.1 % (92.0-98.5); BG OXYHEMOGLOBIN 96.4 % (94.0-97.0); BG PCO2 57.3 mmHg (35.0-45.0); BG PH 7.374 (7.350-7.450); BG SAMPLE SITE LEFT RADIAL; BG TOTAL HEMOGLOBIN 11.8 g/dL (12.0-18.0); BG VENT MODE VENT - SIMV
[2021-07-30] MEDS ORDERED: METOCLOPRAMIDE 10MG/10 ML UDC PO SCH (12:00)
[2021-07-30] MEDS: METOCLOPRAMIDE HCL 10MG/2ML VIAL IV SCH ×2 (12:45→18:09)
[2021-07-30 14:16] LABS: PLATELET ESTIMATE SLIGHTLY INCREASED
[2021-07-30 16:13] LABS: BG BASE EXCESS 2.9 mmol/L (-2.0-2.0); BG CARBOXYHEMOGLOBIN 0.6 % (0.5-1.5); BG DEOXYHEMOGLOBIN 2.6 % (0.0-5.0); BG FRACTION INSPIRED OXYGEN 40; BG HCO3 ACT 31.6 mmol/L (22.0-26.0); BG METHEMOGLOBIN 0.3 % (0.0-1.5); BG OXYGEN SATURATION 97.4 % (92.0-98.5); BG OXYHEMOGLOBIN 96.5 % (94.0-97.0); BG PCO2 70.3 mmHg (35.0-45.0); BG PH 7.271 (7.350-7.450); BG PO2 109.9 mmHg (75.0-100.0); BG SAMPLE SITE RIGHT RADIAL; BG TOTAL HEMOGLOBIN 12.4 g/dL (12.0-18.0); BG TOTAL RESPIRATORY RATE 35 b/min; BG VENT MODE VENT - CPAP
[2021-07-30] MEDS: CEFTRIAXONE 2 G in DEXTROSE 5% WATER 50 ML IV SCH (18:09)
[2021-07-30] MEDS ORDERED: NICARDIPINE 50 MG in SODIUM CHLORIDE 0.9% 230 ML IV PRN (18:15)
[2021-07-30] MEDS ORDERED: NICARDIPINE 100 MG in SODIUM CHLORIDE 0.9% 60 ML IV PRN (18:15)
[2021-07-30] MEDS ORDERED: NICARDIPINE 40MG/200ML PREMIX 200 ML IV PRN (18:30)
[2021-07-31] VITALS (61 sets, daily range): BP systolic 97–168; BP diastolic 49–97
[2021-07-31] MEDS: BLOOD SUGAR DIAGNOSTIC STRIP TEST SCH ×5 (00:07→23:34)
[2021-07-31] MEDS: DILTIAZEM HCL 30MG TABLET PO SCH ×5 (00:09→23:34)
[2021-07-31] MEDS: METOCLOPRAMIDE HCL 10MG/2ML VIAL IV SCH ×5 (00:09→23:34)
[2021-07-31] MEDS: IPRATROPIUM/ALBUTEROL 0.5-3(2.5)MG/3ML NEB HHN SCH ×6 (00:39→21:05)
[2021-07-31] MEDS: MORPHINE SULFATE 2 MG/ML CPJ (NOT FOR IM USE) IV PRN ×3 (05:36→17:23)
[2021-07-31] MEDS: LACTULOSE 20G/30ML UDC PO SCH ×3 (05:47→21:16)
[2021-07-31] MEDS: INSULIN LISPRO 100 UNITS/ML SUBCUT SCH ×5 (06:00→23:34)
[2021-07-31 06:08] LABS: HEMATOCRIT. 36.3 % (42.0-52.0); HEMOGLOBIN. 10.8 g/dL (14.0-18.0); MEAN CORPUSCULAR HEMOGLOBIN 23.9 pg (28.0-32.0); PLATELET 370 x1000/uL (130-400); RED BLOOD CELL COUNT 4.53 mill/uL (4.7-6.1)
[2021-07-31 06:11] LABS: CHLORIDE 113 mEq/L (98-107)
[2021-07-31 09:28] LABS: BG BASE EXCESS 3.4 mmol/L (-2.0-2.0); BG CARBOXYHEMOGLOBIN 0.4 % (0.5-1.5); BG FRACTION INSPIRED OXYGEN 40; BG HCO3 ACT 29.8 mmol/L (22.0-26.0); BG METHEMOGLOBIN 0.5 % (0.0-1.5); BG OXYHEMOGLOBIN 98.1 % (94.0-97.0); BG PCO2 53.3 mmHg (35.0-45.0); BG PH 7.365 (7.350-7.450); BG PO2 171.7 mmHg (75.0-100.0); BG SAMPLE SITE RIGHT RADIAL; BG TOTAL HEMOGLOBIN 12.1 g/dL (12.0-18.0); BG TOTAL RESPIRATORY RATE 26 b/min; BG VENT MODE VENT - SIMV
[2021-07-31] MEDS: DEXTROSE 5% WATER 1,000 ML IV SCH ×2 (10:14→21:16)
[2021-07-31] MEDS: ENOXAPARIN 40MG/0.4ML SYR SUBCUT SCH ×2 (10:15→21:16)
[2021-07-31] MEDS: FAMOTIDINE 20MG TABLET PO SCH ×2 (10:16→21:15)
[2021-07-31] MEDS: ASCORBIC ACID 500 MG TABLET PO SCH ×2 (10:16→21:15)
[2021-07-31] MEDS: ZINC SULFATE 220 MG ( 50 ) CAPSULE PO SCH (10:16)
[2021-07-31] MEDS: SODIUM HYPOCHLORITE 0.125% 473ML SOLUTION TOP SCH (10:19)
[2021-07-31 10:58] LABS: BG BASE EXCESS 4.3 mmol/L (-2.0-2.0); BG CARBOXYHEMOGLOBIN 0.5 % (0.5-1.5); BG DEOXYHEMOGLOBIN 2.2 % (0.0-5.0); BG METHEMOGLOBIN 0.5 % (0.0-1.5); BG OXYGEN SATURATION 97.8 % (92.0-98.5); BG OXYHEMOGLOBIN 96.8 % (94.0-97.0); BG PCO2 63.3 mmHg (35.0-45.0); BG PH 7.321 (7.350-7.450); BG PO2 116.5 mmHg (75.0-100.0); BG SAMPLE SITE RIGHT RADIAL; BG TOTAL HEMOGLOBIN 11.9 g/dL (12.0-18.0); BG VENT MODE VENT - CPAP
[2021-07-31 13:55] LABS: PLATELET ESTIMATE NORMAL
[2021-07-31] MEDS: CEFTRIAXONE 2 G in DEXTROSE 5% WATER 50 ML IV SCH (16:12)
[2021-07-31 20:47] LABS: BG BASE EXCESS 2.8 mmol/L (-2.0-2.0); BG CARBOXYHEMOGLOBIN 0.3 % (0.5-1.5); BG DEOXYHEMOGLOBIN 1.8 % (0.0-5.0); BG FRACTION INSPIRED OXYGEN 100; BG HCO3 ACT 28.7 mmol/L (22.0-26.0); BG METHEMOGLOBIN 0.2 % (0.0-1.5); BG OXYGEN SATURATION 98.2 % (92.0-98.5); BG OXYHEMOGLOBIN 97.7 % (94.0-97.0); BG PCO2 49.9 mmHg (35.0-45.0); BG PH 7.377 (7.350-7.450); BG PO2 133.3 mmHg (75.0-100.0); BG SAMPLE SITE RIGHT RADIAL; BG TOTAL HEMOGLOBIN 11.3 g/dL (12.0-18.0); BG VENT MODE MASK - NRB
[2021-07-31] MEDS: ACETAMINOPHEN 325MG TABLET PO PRN (21:55)
[2021-08-01] VITALS (26 sets, daily range): BP systolic 113–164; BP diastolic 56–101
[2021-08-01] MEDS: IPRATROPIUM/ALBUTEROL 0.5-3(2.5)MG/3ML NEB HHN SCH ×6 (00:26→20:28)
[2021-08-01] MEDS: BLOOD SUGAR DIAGNOSTIC STRIP TEST SCH ×3 (05:13→17:44)
[2021-08-01] MEDS: METOCLOPRAMIDE HCL 10MG/2ML VIAL IV SCH ×3 (05:13→17:58)
[2021-08-01] MEDS: DILTIAZEM HCL 30MG TABLET PO SCH (05:13)
[2021-08-01] MEDS: INSULIN LISPRO 100 UNITS/ML SUBCUT SCH ×3 (05:13→17:44)
[2021-08-01] MEDS: LACTULOSE 20G/30ML UDC PO SCH ×3 (05:13→22:06)
[2021-08-01 05:42] LABS: BASOPHILS % 0.4 % (0.0-2.0); EOSINOPHILS % 2.2 % (0.0-5.0); HEMOGLOBIN. 10.6 g/dL (14.0-18.0); LYMPHOCYTES % 7.2 % (20.0-50.0); MEAN CORPUSCULAR HEMOGLOBIN 24.3 pg (28.0-32.0); MEAN CORPUSCULAR VOLUME 78.3 fL (80.0-94.0); MEAN PLATELET VOLUME 8.1 fl (7.4-10.4); MONOCYTES % 7.5 % (2.0-8.0); NEUTROPHILS % 82.7 % (40.0-76.0); PLATELET 348 x1000/uL (130-400); RED BLOOD CELL COUNT 4.34 mill/uL (4.7-6.1); RED CELL DISTRIBUTION WIDTH 18.2 % (11.6-14.6)
[2021-08-01 06:00] LABS: CHLORIDE 110 mEq/L (98-107)
[2021-08-01] MEDS ORDERED: DILTIAZEM HCL 5MG/ML 5ML VIAL IV NR (07:45)
[2021-08-01 08:12] LABS: BG BASE EXCESS 5.2 mmol/L (-2.0-2.0); BG CARBOXYHEMOGLOBIN 0.7 % (0.5-1.5); BG DEOXYHEMOGLOBIN 7.8 % (0.0-5.0); BG FRACTION INSPIRED OXYGEN 60; BG METHEMOGLOBIN 0.3 % (0.0-1.5); BG OXYGEN SATURATION 92.1 % (92.0-98.5); BG OXYHEMOGLOBIN 91.2 % (94.0-97.0); BG PCO2 50.9 mmHg (35.0-45.0); BG PH 7.402 (7.350-7.450); BG PO2 63.2 mmHg (75.0-100.0); BG SAMPLE SITE RIGHT RADIAL; BG TOTAL HEMOGLOBIN 11.8 g/dL (12.0-18.0); BG VENT MODE COOL AEROSOL
[2021-08-01] MEDS: SODIUM HYPOCHLORITE 0.125% 473ML SOLUTION TOP SCH (09:43)
[2021-08-01] MEDS: FAMOTIDINE 20MG TABLET PO SCH ×2 (09:43→22:07)
[2021-08-01] MEDS: ENOXAPARIN 40MG/0.4ML SYR SUBCUT SCH (09:43)
[2021-08-01] MEDS: ASCORBIC ACID 500 MG TABLET PO SCH ×2 (09:43→22:07)
[2021-08-01] MEDS: ZINC SULFATE 220 MG ( 50 ) CAPSULE PO SCH (09:43)
[2021-08-01] MEDS: DEXTROSE 5% WATER 1,000 ML IV SCH (11:40)
[2021-08-01] MEDS: DILTIAZEM HCL 60MG TABLET PO SCH ×2 (12:00→17:58)
[2021-08-01] MEDS: ACETYLCYSTEINE 100MG/ML 10% VIAL 4ML INH SCH ×2 (15:31→22:07)
[2021-08-01] MEDS: CEFTRIAXONE 2 G in DEXTROSE 5% WATER 50 ML IV SCH (16:00)
[2021-08-01] MEDS ORDERED: ENOXAPARIN 150MG/ML SYR SUBCUT SCH (18:00)
[2021-08-02] VITALS: BP 129/64
[2021-08-02] MEDS: INSULIN LISPRO 100 UNITS/ML SUBCUT SCH
[2021-08-02] MEDS: BLOOD SUGAR DIAGNOSTIC STRIP TEST SCH (00:30)
[2021-08-02] MEDS: DILTIAZEM HCL 60MG TABLET PO SCH (00:46)
[2021-08-02] MEDS: METOCLOPRAMIDE HCL 10MG/2ML VIAL IV SCH (00:47)
[2021-08-02] MEDS: DEXTROSE 5% WATER 1,000 ML IV SCH (01:08)
[2021-08-02 02:00] VITALS: BP 139/97
== END 2021-08-02 06:28 | DRG 853 ==
LOC: ER 15:43 → CVICU 20:25 → EDBEDREQ 20:30 → EDBEDREQTM 20:30 → SUPCPDRO 20:47 → ENRESERV 07-19 07:27 → EDBEDREQSVC 07-19 08:25 → CANRESERV 07-19 09:19 → ENRESERV 07-19 09:19 → CANBEDREQ 07-19 09:20 → EDBEDREQSVC 07-19 10:07 → ENRESERV 07-19 10:30 → EDBEDREQTM 07-19 11:11 → EDBEDREQSVC 07-19 11:11 → EDBEDREQ 07-19 11:11 → ENRESERV 07-19 13:06 → 5EST 08-01 20:57
PROVIDERS: ADMIT Internal Medicine; ATTEND Internal Medicine
PROC: 5A1955Z Respiratory Ventilation, Greater than 96 Consecutive Hours (ICD-10-PCS; principal; 2021-07-19)
PROC: 05H533Z Insertion of Infusion Device into Right Subclavian Vein, Percutaneous Approach (ICD-10-PCS; 2021-07-19)
PROC: B546ZZA Ultrasonography of Right Subclavian Vein, Guidance (ICD-10-PCS; 2021-07-19)
PROC: 0BH17EZ Insertion of Endotracheal Airway into Trachea, Via Natural or Artificial Opening (ICD-10-PCS; 2021-07-19)
PROC: 0QBP0ZZ Excision of Left Metatarsal, Open Approach (ICD-10-PCS; 2021-07-20)
PROC: 5A0935A Assistance with Respiratory Ventilation, Less than 24 Consecutive Hours, High Flow/Velocity Cannula (ICD-10-PCS; 2021-08-01)
DX: A41.01 Sepsis due to Methicillin susceptible Staphylococcus aureus (principal); E43 Unspecified severe protein-calorie malnutrition; J96.01 Acute respiratory failure with hypoxia; G92.8 Other toxic encephalopathy; R65.21 Severe sepsis with septic shock; J15.211 Pneumonia due to Methicillin susceptible Staphylococcus aureus; I21.4 Non-ST elevation (NSTEMI) myocardial infarction; I50.31 Acute diastolic (congestive) heart failure; L03.115 Cellulitis of right lower limb; L03.116 Cellulitis of left lower limb; E66.2 Morbid (severe) obesity with alveolar hypoventilation; E87.2 Acidosis; Z68.43 Body mass index [BMI] 50.0-59.9, adult; L02.416 Cutaneous abscess of left lower limb; E87.0 Hyperosmolality and hypernatremia; D63.8 Anemia in other chronic diseases classified elsewhere; I35.0 Nonrheumatic aortic (valve) stenosis; L97.529 Non-pressure chronic ulcer of other part of left foot with unspecified severity; F17.210 Nicotine dependence, cigarettes, uncomplicated; L60.2 Onychogryphosis; S80.822A Blister (nonthermal), left lower leg, initial encounter; X58.XXXA Exposure to other specified factors, initial encounter; I73.9 Peripheral vascular disease, unspecified; I48.0 Paroxysmal atrial fibrillation; E86.1 Hypovolemia; I34.0 Nonrheumatic mitral (valve) insufficiency; I36.1 Nonrheumatic tricuspid (valve) insufficiency; Z20.822 Contact with and (suspected) exposure to COVID-19; I11.0 Hypertensive heart disease with heart failure; Y93.89 Activity, other specified; Y92.89 Other specified places as the place of occurrence of the external cause; Y99.8 Other external cause status
CPT/HCPCS: 31500; 36415; 36600; 71045; 71250; 73590; 73620; 76937; 80048; 80053; 80202; 80305; 80320; 82140; 82375; 82550; 82607; 82746; 82805; 82962; 83036; 83540; 83550; 83605; 83735; 83880; 84100; 84145; 84155; 84165; 84443; 84478; 84484; 85025; 87070; 87075; 87077; 87186; 87426; 93005; 93306; 93923; 93970; 94002; 94003; 94640; 99285; C1725; J0692; J0696; J1650; J1940; J1956; J2060; J2250; J2270; J2370; J2543; J2765; J3010; J3370; J3490; J7042; J7050; J7060; J7070; J7608; A4315; G0480